=== PATIENT | male | born 1975 | race Caucasian/White ===

== ENCOUNTER 2021-01-31 12:59 | Emergency (ER) | payer MEDICAID, SELFPAY ==
--- NOTE | ~2021-01-31 | US_ITS ---
EXAMINATION: US SCROTUM US SCROTUM DOPPLER CLINICAL INFORMATION: Left scrotal pain. COMPARISON: None TECHNIQUE: A sonogram of the scrotum was performed assessing mckeon-scale appearance and color Doppler flow. Spectral Doppler analysis of the arterial and venous flow were performed in the testes bilaterally. FINDINGS: RIGHT: Right testicle measures 4.3 x 3.3 x 2.9 cm, volume 22 mL. No focal testicular parenchymal lesions are visualized. Spectral Doppler analysis of the arterial and venous flow is normal in the right testis. Right epididymal head is normal in size. There is a small amount of right scrotal fluid. Right epididymal Doppler flow is present LEFT: Left testicle measures 4.7 x 2.7 x 3.0 cm, volume 20 mL. No focal testicular parenchymal lesions are visualized. Spectral Doppler analysis of the arterial and venous flow is normal in the left testis. Left epididymal head is normal in size with a 0.6 cm epididymal head cyst or spermatocele. No left hydrocele or varicocele is seen. Left epididymal Doppler flow is increased in the epididymal tail which is hypoechoic and enlarged. US/US scrotum doppler IMPRESSION: No focal abnormality within either testicle. There is normal Doppler flow within each testicle. There is an enlarged hypervascular left epididymal tail. This may correspond to a cause for pain secondary to epididymitis
--- NOTE | ~2021-01-31 | US_ITS ---
EXAMINATION: US SCROTUM US SCROTUM DOPPLER CLINICAL INFORMATION: Left scrotal pain. COMPARISON: None TECHNIQUE: A sonogram of the scrotum was performed assessing mckeon-scale appearance and color Doppler flow. Spectral Doppler analysis of the arterial and venous flow were performed in the testes bilaterally. FINDINGS: RIGHT: Right testicle measures 4.3 x 3.3 x 2.9 cm, volume 22 mL. No focal testicular parenchymal lesions are visualized. Spectral Doppler analysis of the arterial and venous flow is normal in the right testis. Right epididymal head is normal in size. There is a small amount of right scrotal fluid. Right epididymal Doppler flow is present LEFT: Left testicle measures 4.7 x 2.7 x 3.0 cm, volume 20 mL. No focal testicular parenchymal lesions are visualized. Spectral Doppler analysis of the arterial and venous flow is normal in the left testis. Left epididymal head is normal in size with a 0.6 cm epididymal head cyst or spermatocele. No left hydrocele or varicocele is seen. Left epididymal Doppler flow is increased in the epididymal tail which is hypoechoic and enlarged. US/US scrotum IMPRESSION: No focal abnormality within either testicle. There is normal Doppler flow within each testicle. There is an enlarged hypervascular left epididymal tail. This may correspond to a cause for pain secondary to epididymitis
--- NOTE | ~2021-01-31 | CT_ITS ---
EXAMINATION: CT ABDOMEN AND PELVIS WITHOUT CONTRAST CLINICAL INFORMATION: Left flank pain radiating to the left lower quadrant. COMPARISON: CT scan of the abdomen and pelvis dated 01/01/2018. TECHNIQUE: Multidetector volumetric imaging was performed from the superior aspect of the liver through the pubic symphysis. Sagittal and coronal reformatted images were obtained on the technologist's workstation. Intravenous and oral contrast limits visceral evaluation. This CT examination was performed using dose optimization techniques as appropriate, variously including the following: *Automated exposure control *Adjustment of mA and/or kV according to patient size (this includes techniques or standardized protocols for targeted exams where dose is matched to indication/reason for exam; i.e. extremities or head) *Use of iterative reconstruction technique DLP: 919 mGy-cm FINDINGS: LUNG BASES: The visualized lung bases are unremarkable. LIVER, GALLBLADDER, AND BILIARY TREE: Unremarkable. PANCREAS: Unremarkable. SPLEEN: Noncalcified low attenuation focus inferiorly inferiorly without significant change measuring 1.2 cm. ADRENAL GLANDS: Unremarkable. KIDNEYS AND URETERS: The kidneys are normal in size, shape, and attenuation. No hydronephrosis, hydroureter, or calculi seen. A small interpolar exophytic cyst laterally measures 1.2 cm (image 53, series 5). No perinephric stranding. BLADDER: Unremarkable. GASTROINTESTINAL TRACT: The stomach is unremarkable. There is a small third segment duodenal diverticulum without abnormality. The remainder of the small bowel and appendix are unremarkable. Mild diverticulosis is seen in the sigmoid colon without acute abnormality. ABDOMINAL WALL: No significant hernia is appreciated. LYMPH NODES: No lymphadenopathy. VASCULAR: Unremarkable. PELVIC VISCERA: Unremarkable. OSSEOUS STRUCTURES: Unremarkable. CT/CT abdomen pelvis wo con IMPRESSION: 1. No nephrolithiasis or hydroureteronephrosis. Small left renal cysts demonstrate benign features. 2. Small inferior splenic cyst demonstrates benign features without significant change. 3. Mild sigmoid diverticulosis without evidence for acute diverticulitis.
--- NOTE | 2021-01-31 13:29 | ED.ABDPAIN ---
HPI - Abdominal Pain General Chief Complaint: Urogenital-Male Stated Complaint: KIDNEY PAIN Time Seen by Provider: 01/31/21 13:13 Source: patient Mode of arrival: ambulatory Limitations: no limitations History of Present Illness HPI narrative: 45 y/o male with no past medical history presents to the ER with worsening left flank pain that started 4 days ago. He states it started out dull and he thought it was a muscle ache. As time went on the pain increased and started to radiate down into his LLQ and left testicle. He states he did not sleep more than 2 hours last night due to the pain. He is nauseated but has not vomited. No fever, chills, hematuria, difficulty urinating or dysuria. No penile discharge. He reports similar pain (less intense) a few years ago for which he had a CT scan done that did not show any kidney stones and they thought he had already passed a stone. MD elicited complaint: flank pain Pertinent past history: none Onset (ago): day(s) (4) Pain Consistency: constant Location: L flank Severity: severe Pain scale (0-10): 10 Quality: stabbing and dull Radiation: LLQ Migration to: other (left testicle) Exacerbating factors: movement Relieving factors: nothing Context: history of similar episodes (once, several years ago ) Associated symptoms: nausea Related Data Previous Rx's Medication Instructions Recorded ibuprofen 600 mg PO Q8H PRN #20 tab 01/31/21 levofloxacin 500 mg PO DAILY #10 tab 01/31/21 miconazole nitrate 1 appl TOPICAL BID #30 g 01/31/21 Allergies Allergy/AdvReac Type Severity Reaction Status Date / Time No Known Allergies Allergy Unverified 08/13/20 14:55 [No Known Allergies*] Review of Systems Review of Systems Constitutional: No Fever, No Chills Cardiovascular: No Chest Pain, No SOB Respiratory: No Cough, No Sputum Gastrointestinal: + Nausea, No Vomiting, No Diarrhea, + abdominal Pain (left flank and LLQ) Genitourinary: No Dysuria, No Urinary Frequency, No Hematuria Musculoskeletal: No joint pain, No Myalgias Skin: No Skin Lesions, No rash Neuro: No Weakness, No Numbness, No Dizziness, No Headache Psych: No Anxiety/Panic, No Depression Heme/Lymph: No Bruising, No Lymphadenopathy Endocrine: No Polyuria, No Polydipsia Physical Exam Vital Signs: Vital Signs: Last Vital Signs Temp 98.9 F 01/31/21 16:11 Pulse 72 01/31/21 16:11 Resp 18 01/31/21 16:11 BP 128/81 01/31/21 16:11 Pulse Ox 95 01/31/21 16:11 Body Mass Index 29.4 Appearance: Alert. Oriented X3. Appears uncomfortable and in pain Eyes: Pupils equal, round and reactive to light. ENT: Pharynx normal. Neck: Normal inspection. Neck supple. CVS: Normal heart rate and rhythm. Pulses normal. Respiratory: No respiratory distress. Breath sounds normal. Abdomen: Soft with mild LLQ tenderness, no rebound or guarding. +CVA tenderness on the left. Genitalia: normal inspection, circumsized penis without discharge at meatus, mild tenderness of left epididymus, no masses Skin: Skin warm and dry. Normal skin color. Normal skin turgor. No rashes. Extremities: No lower extremity edema. Neuro: Oriented X 3. No motor deficit. No sensory deficit. Course Course Course Narrative: 45 yo male presenting with 4 days of worsening left flank pain. Clinical picture concerning for kidney stones. Differential diagnosis includes but not limited to diverticulitis, lumbar strain, pyelonephritis. Doubt testicular torsion or epididymitis. Will get labs and CT scan. IVF, zofran and toradol ordered. Reevaluation(s) Reevaluation #1: Pain persisted after Toradol - IV morphine given. Labs are looking unremarkable so far. CT scan pending. Reevaluation #2: CT scan did not show any evidence of kidney stones. It showed a stable benign splenic cyst (seen in prior CT 2018). His pain is improved after meds. Given testicular involvement will get US and r/o epididymitis and torsion. Reevaluation #3: Testicular US showing evidence of epididymitis without torsion. Will treat with Levaquin and refer to Urology. His pain continues to be well controlled and he is stable for discharge home. MDM - Abdominal Pain Lab Data Result diagrams: 01/31/21 13:49 01/31/21 13:49 Labs: Lab Results 01/31/21 01/31/21 01/31/21 Range/Units 13:49 13:49 13:49 WBC 9.2 (4.8-10.8) X10*3/uL RBC 5.13 (4.60-5.80) X10*6/uL Hgb 15.4 (14.0-18.0) g/dl Hct 45.1 (42-52) % MCV 87.9 (80-98) fL MCH 30.0 (27.0-33.0) pg MCHC 34.1 (31.0-36.0) g/dl RDW 12.1 (11.0-16.0) % Plt Count 246 (160-400) X10*3/uL MPV 9.5 (9.4-12.4) fL Immature Gran % (Auto) 0.3 (0.0-0.4) % Neut % (Auto) 63.6 (45-73) % Lymph % (Auto) 26.8 (20-40) % Gonzales % (Auto) 8.5 (2-11) % Eos % (Auto) 0.5 (0-4) % Baso % (Auto) 0.3 (0-2) % Lymph # (Auto) 2.5 (1.2-4.9) X10*3/uL Gonzales # (Auto) 0.8 (0.1-1.2) X10*3/uL Eos # (Auto) 0.1 (0.0-0.4) X10*3/uL Baso # (Auto) 0.0 (0.0-0.2) X10*3/uL Abs Immat Gran (auto) 0.03 (0.00-0.03) X10*3/uL Absolute Neuts (auto) 5.8 (2.0-8.3) X10*3/uL Absolute Nucleated RBC 0.000 (0.0-0.012) X10*3/uL Nucleated RBC % (auto) 0.0 (0.0-0.2) /100WBC Hold Blue Top SEE NOTE Sodium 139 (135-145) mmol/L Potassium 4.0 (3.3-5.1) mmol/L Chloride 104 (96-108) mmol/L Carbon Dioxide 27 (22-29) mmol/L Anion Gap 12 (12-20) BUN 10 (9-16) mg/dL Creatinine 0.98 (0.5-1.4) mg/dL Estim Creat Clear Calc 110.1 Estimated GFR > 60 Random Glucose 94 (60-115) mg/dL Calcium 9.1 (8.4-10.2) mg/dL Magnesium 1.8 (1.6-2.6) mg/dL Total Bilirubin 0.8 (0.0-1.0) mg/dL Direct Bilirubin 0.2 (0.0-0.5) mg/dL AST 20 (5-37) U/L ALT 30 (0-40) U/L Alkaline Phosphatase 50 (39-117) U/L Total Protein 7.5 (6.5-8.0) g/dL Albumin 4.7 (3.5-5.0) g/dL Urine Color Urine Appearance Urine pH (5.0-8.0) Ur Specific [place] (1.005-1.025) Urine Protein (NEG-TRACE) MG/DL Urine Glucose (UA) (NEG) MG/DL Urine Ketones (NEG) MG/DL Urine Blood (NEG) Urine Nitrite (NEG) Ur Leukocyte Esterase (NEG) 01/31/21 Range/Units 15:56 WBC (4.8-10.8) X10*3/uL RBC (4.60-5.80) X10*6/uL Hgb (14.0-18.0) g/dl Hct (42-52) % MCV (80-98) fL MCH (27.0-33.0) pg MCHC (31.0-36.0) g/dl RDW (11.0-16.0) % Plt Count (160-400) X10*3/uL MPV (9.4-12.4) fL Immature Gran % (Auto) (0.0-0.4) % Neut % (Auto) (45-73) % Lymph % (Auto) (20-40) % Gonzales % (Auto) (2-11) % Eos % (Auto) (0-4) % Baso % (Auto) (0-2) % Lymph # (Auto) (1.2-4.9) X10*3/uL Gonzales # (Auto) (0.1-1.2) X10*3/uL Eos # (Auto) (0.0-0.4) X10*3/uL Baso # (Auto) (0.0-0.2) X10*3/uL Abs Immat Gran (auto) (0.00-0.03) X10*3/uL Absolute Neuts (auto) (2.0-8.3) X10*3/uL Absolute Nucleated RBC (0.0-0.012) X10*3/uL Nucleated RBC % (auto) (0.0-0.2) /100WBC Hold Blue Top Sodium (135-145) mmol/L Potassium (3.3-5.1) mmol/L Chloride (96-108) mmol/L Carbon Dioxide (22-29) mmol/L Anion Gap (12-20) BUN (9-16) mg/dL Creatinine (0.5-1.4) mg/dL Estim Creat Clear Calc Estimated GFR Random Glucose (60-115) mg/dL Calcium (8.4-10.2) mg/dL Magnesium (1.6-2.6) mg/dL Total Bilirubin (0.0-1.0) mg/dL Direct Bilirubin (0.0-0.5) mg/dL AST (5-37) U/L ALT (0-40) U/L Alkaline Phosphatase (39-117) U/L Total Protein (6.5-8.0) g/dL Albumin (3.5-5.0) g/dL Urine Color YELLOW Urine Appearance CLEAR Urine pH 5.5 (5.0-8.0) Ur Specific [place] 1.010 (1.005-1.025) Urine Protein NEG (NEG-TRACE) MG/DL Urine Glucose (UA) NEG (NEG) MG/DL Urine Ketones NEG (NEG) MG/DL Urine Blood NEG (NEG) Urine Nitrite NEG (NEG) Ur Leukocyte Esterase NEG (NEG) Critical Care Time Critical Care Time Critical Care Time: No Discharge Plan Discharge Clinical Impression: Epididymitis Patient Disposition: Home, Self-Care Instructions: Epididymitis (ED) Additional Instructions: Your CT scans and blood were today were unremarkable. Your testicular ultrasound showed evidence of inflammation and possible infection of your epididymis. Take the prescribed antibiotic for this - complete all 10 days. Follow up with your doctor this week. Follow up with Urology as needed. If you are having continued or worsening pain come back to the ER for further evaluation. Prescriptions: New levofloxacin 500 mg tablet 500 mg PO DAILY Qty: 10 RF: 0 ibuprofen 600 mg tablet 600 mg PO Q8H PRN (Reason: pain) Qty: 20 RF: 0 miconazole nitrate 2 % cream 1 appl topical BID Qty: 30 RF: 0 PMFSH Past Medical History Attestation statement: The following information was validated with the patient. Social History Social History Alcohol intake: never Smoking Status: Never smoker Use of substances other than those prescribed or required for medical reasons: No Advance Directives: No Advance Directives Information Provided: No
[2021-01-31] MEDS: 0.9 % Sodium Chloride 1,000 ML 999 ML IVCONT ×2 (13:45→16:10)
[2021-01-31] MEDS: Ketorolac Tromethamine 30 MG/ML VIAL IVPUSH (13:45)
[2021-01-31] MEDS: ondansetron HCL 4 MG/2 ML VIAL IVPUSH (13:45)
[2021-01-31 13:52] VITALS: BP 153/81; PULSE 64; RESP 15; TEMP 36.7; O2SAT 97; BMI 29.4
[2021-01-31 13:54] LABS: MANUAL DIFF FLAG NO
[2021-01-31 13:55] LABS: Basophils Percent Auto 0.3 % (0-2); Eosinophils Absolute Auto 0.1 X10*3/uL (0.0-0.4); Eosinophils Percent Auto 0.5 % (0-4); Hematocrit 45.1 % (42-52); Hemoglobin 15.4 g/dl (14.0-18.0); Imm Gran Abs Auto 0.03 X10*3/uL (0.00-0.03); Imm Gran Pct Auto 0.3 % (0.0-0.4); Lymphocytes Absolute Auto 2.5 X10*3/uL (1.2-4.9); Lymphocytes Percent Auto 26.8 % (20-40); Mean Corpuscular HGB Conc 34.1 g/dl (31.0-36.0); Mean Corpuscular Volume 87.9 fL (80-98); Mean Platelet Volume 9.5 fL (9.4-12.4); Monocytes Absolute Auto 0.8 X10*3/uL (0.1-1.2); Monocytes Percent Auto 8.5 % (2-11); Neutrophils Absolute Auto 5.8 X10*3/uL (2.0-8.3); Neutrophils Percent Auto 63.6 % (45-73); Platelet Count 246 X10*3/uL (160-400); Red Blood Count 5.13 X10*6/uL (4.60-5.80); Red Cell Distribution Width 12.1 % (11.0-16.0); White Blood Count 9.2 X10*3/uL (4.8-10.8)
[2021-01-31 13:56] VITALS: BP 153/81; PULSE 64; RESP 15; TEMP 36.7; O2SAT 97
[2021-01-31] MEDS: Morphine Sulfate 4 MG/ML CARTRIDGE IVPUSH (14:11)
[2021-01-31 14:18] LABS: Alanine Aminotransferase 30 U/L (0-40); Albumin Level 4.7 g/dL (3.5-5.0); Alkaline Phosphatase 50 U/L (39-117); Anion Gap 12 (12-20); Aspartate Amino Transferase 20 U/L (5-37); Bilirubin Direct 0.2 mg/dL (0.0-0.5); Bilirubin Total 0.8 mg/dL (0.0-1.0); Blood Urea Nitrogen 10 mg/dL (9-16); Calcium 9.1 mg/dL (8.4-10.2); Carbon Dioxide 27 mmol/L (22-29); Chloride 104 mmol/L (96-108); Creatinine Clr Calc Pharmacy 110.1; Estimated Glomerular Filt Rate > 60; Glucose Random 94 mg/dL (60-115); Magnesium 1.8 mg/dL (1.6-2.6); Sodium 139 mmol/L (135-145); Total Protein 7.5 g/dL (6.5-8.0)
[2021-01-31 15:54] VITALS: BP 128/81; PULSE 72; RESP 18; TEMP 37.2; O2SAT 95
[2021-01-31 16:11] VITALS: BP 128/81; PULSE 72; RESP 18; TEMP 37.2; O2SAT 95
[2021-01-31 16:11] LABS: Glucose Urine UA NEG (NEG); Leukocyte Esterase Urine NEG (NEG); Nitrite Urine NEG (NEG); PH 5.5 (5.0-8.0); Urine Blood NEG (NEG); Urine Ketones NEG (NEG); Urine Protein NEG (NEG-TRACE)
[2021-01-31 16:12] LABS: Appearance Urine CLEAR; Color Urine YELLOW
[2021-01-31 17:36] VITALS: BP 99/68; PULSE 67; RESP 18; TEMP 37.2; O2SAT 97
== END 2021-01-31 17:43 | disposition home or self-care (01) ==
PROVIDERS: Physician Assistant; Emergency Provider Emergency Medicine
DX: N45.1 Epididymitis (principal)
CPT/HCPCS: 36415; 74176; 76870; 80048; 80076; 81003; 83735; 85025; 93975; 96361; 96374; 96375; 99284; J1885; J2270; J2405

== ENCOUNTER → 2021-02-24 09:03 | Outpatient (BNVA) | payer MEDICAID, SELFPAY | PROVIDERS: PCP Internal Medicine; Visit Provider Urology | DX: N45.1 Epididymitis (principal) | CPT/HCPCS: 64425; 99202 ==

== ENCOUNTER → 2021-03-17 14:14 | Outpatient (BNVA) | payer MEDICAID, SELFPAY | PROVIDERS: PCP Internal Medicine; Visit Provider Urology ==

== ENCOUNTER 2022-11-23 11:11 | Outpatient (REF) | payer MEDICAID, SELFPAY ==
--- NOTE | ~2022-11-23 | US_ITS ---
EXAMINATION: US SCROTUM CLINICAL INFORMATION: Epididymal cyst. COMPARISON: Scrotal ultrasound 01/31/2021. TECHNIQUE: A sonogram of the scrotum was performed assessing mckeon-scale appearance and color Doppler flow. Spectral Doppler analysis of the arterial and venous flow were performed in the testes bilaterally. FINDINGS: RIGHT: Right testicle measures 3.9 x 2.3 x 3.2 cm, volume 14.5 mL. There is a moderate-sized hydrocele with debris present. Spectral Doppler analysis of the arterial and venous flow is normal in the right testis. Microlithiasis is present. Right epididymal head contains a 7 mm epididymal head cyst. Right epididymal Doppler flow is normal. LEFT: Left testicle measures 4.3 x 2.3 x 2.9 cm, volume 14.9 mL. There is a varicocele present. Spectral Doppler analysis of the arterial and venous flow is normal in the left testis. Microlithiasis is present. Left epididymal head is normal. No left hydrocele is seen. Left epididymal Doppler flow is normal. US/US scrotum IMPRESSION: Right hydrocele with debris. Left varicocele. 7 mm right epididymal head cyst.
== END 2022-11-23 11:12 | disposition home or self-care (01) ==
LOC: HO.HMGCX 11:11
PROVIDERS: PCP Internal Medicine; Visit Provider Internal Medicine
DX: N50.3 Cyst of epididymis (principal)
CPT/HCPCS: 76870

== ENCOUNTER → 2022-12-26 14:46 | Outpatient (BNVA) | payer MEDICAID, SELFPAY | PROVIDERS: PCP Internal Medicine; Visit Provider Nurse Practitioner Family | DX: N45.1 Epididymitis (principal) | CPT/HCPCS: 99212 ==

== ENCOUNTER 2023-01-03 08:56 | Emergency (ER) | payer MEDICAID, SELFPAY ==
--- NOTE | ~2023-01-03 | CT_ITS ---
EXAMINATION: CT HEAD W/O IV CONTRAST CT CERVICAL SPINE W/O IV CONTRAST CLINICAL INFORMATION: 47-year-old male with history of pain after fall. COMPARISON: None TECHNIQUE: Head - Contiguous axial imaging of the head was performed from the skull base to the vertex without the administration of intravenous contrast, and axial images are reconstructed at 2 mm and 5 mm slice thickness. Cervical spine - A volumetric, helical CT acquisition of the cervical spine was obtained without contrast; in addition to the standard set of axial images, multiplanar reformatted images were provided in the coronal and sagittal imaging planes. This CT examination was performed using dose optimization techniques as appropriate, variously including the following: *Automated exposure control *Adjustment of mA and/or kV according to patient size (this includes techniques or standardized protocols for targeted exams where dose is matched to indication/reason for exam; i.e. extremities or head) *Use of iterative reconstruction technique DLP: 1319 mGy-cm (total) FINDINGS: HEAD: The brain parenchyma has normal attenuation. Bruner to white matter differentiation is preserved. No evidence of intracranial hemorrhage, major vascular territory infarction, focal mass effect or midline shift. The ventricles have normal size and configuration. No evidence of hydrocephalus or extra-axial fluid collections. The calvarium is intact and the visualized paranasal sinuses, mastoid air cells and middle ear cavities are clear. The temporomandibular joints are intact. The orbits and globes are unremarkable. CERVICAL SPINE: There is lack of lordotic curvature of the mildly degenerated cervical spine. The craniocervical junction is normal. The occipital condyles, dens and atlantodental articulation are intact. The vertebral body heights and alignment are maintained. No fractures in the anterior or posterior elements. No prevertebral soft tissue edema. Mild degenerative disc space loss and vertebral osteophyte formation at C4-C5 and C5-C6. Multilevel uncovertebral joint hypertrophy with osteophytes causing moderate right and mild left neural foraminal stenosis at C3-C4, and [id number] bilateral neural foraminal stenosis at C4-C5 and C5-C6. The right side of the spinal canal is mildly narrowed by a disc osteophyte complex at C3-C4. Also, mild central canal stenosis is caused by a disc-osteophyte complex at C5-C6. No hematoma in the visualized neck. The examined lung apices are normal. Thyroid gland is normal. CT/CT cervical spine wo IV con IMPRESSION: * No acute intracranial pathology. * No fracture or malalignment in the degenerated cervical spine.
--- NOTE | ~2023-01-03 | CT_ITS ---
EXAMINATION: CT HEAD W/O IV CONTRAST CT CERVICAL SPINE W/O IV CONTRAST CLINICAL INFORMATION: 47-year-old male with history of pain after fall. COMPARISON: None TECHNIQUE: Head - Contiguous axial imaging of the head was performed from the skull base to the vertex without the administration of intravenous contrast, and axial images are reconstructed at 2 mm and 5 mm slice thickness. Cervical spine - A volumetric, helical CT acquisition of the cervical spine was obtained without contrast; in addition to the standard set of axial images, multiplanar reformatted images were provided in the coronal and sagittal imaging planes. This CT examination was performed using dose optimization techniques as appropriate, variously including the following: *Automated exposure control *Adjustment of mA and/or kV according to patient size (this includes techniques or standardized protocols for targeted exams where dose is matched to indication/reason for exam; i.e. extremities or head) *Use of iterative reconstruction technique DLP: 1319 mGy-cm (total) FINDINGS: HEAD: The brain parenchyma has normal attenuation. Bruner to white matter differentiation is preserved. No evidence of intracranial hemorrhage, major vascular territory infarction, focal mass effect or midline shift. The ventricles have normal size and configuration. No evidence of hydrocephalus or extra-axial fluid collections. The calvarium is intact and the visualized paranasal sinuses, mastoid air cells and middle ear cavities are clear. The temporomandibular joints are intact. The orbits and globes are unremarkable. CERVICAL SPINE: There is lack of lordotic curvature of the mildly degenerated cervical spine. The craniocervical junction is normal. The occipital condyles, dens and atlantodental articulation are intact. The vertebral body heights and alignment are maintained. No fractures in the anterior or posterior elements. No prevertebral soft tissue edema. Mild degenerative disc space loss and vertebral osteophyte formation at C4-C5 and C5-C6. Multilevel uncovertebral joint hypertrophy with osteophytes causing moderate right and mild left neural foraminal stenosis at C3-C4, and [id number] bilateral neural foraminal stenosis at C4-C5 and C5-C6. The right side of the spinal canal is mildly narrowed by a disc osteophyte complex at C3-C4. Also, mild central canal stenosis is caused by a disc-osteophyte complex at C5-C6. No hematoma in the visualized neck. The examined lung apices are normal. Thyroid gland is normal. CT/CT head/brain wo IV con IMPRESSION: * No acute intracranial pathology. * No fracture or malalignment in the degenerated cervical spine.
--- NOTE | ~2023-01-03 | XR_ITS ---
EXAMINATION: XR LUMBOSACRAL SPINE CLINICAL INFORMATION: Back pain status post fall. COMPARISON: CT scan of the abdomen and pelvis dated 01/31/2021 TECHNIQUE: Three views of the lumbosacral spine. FINDINGS: There is normal lumbar lordosis and spinal alignment. Mild disc space narrowing is seen at L5-S1. The remainder the intervertebral disc spaces are unremarkable. XR/XR lumbar spine 2-3V IMPRESSION: L5-S1 mild disc space narrowing may be degenerative in nature. This is similar to the 2020 CT scan.
[2023-01-03 09:01] VITALS: BP 140/92; PULSE 94; RESP 18; TEMP 35.5; O2SAT 96; BMI 29.4
--- NOTE | 2023-01-03 09:13 | PC.NURSE ---
Patient admits to striking forehead on the trunk of his car. Denies LOC. Woke up today with n/v and was concerned about a head injury . PERRL. Steady gait with no unilateral weakness noted.
--- NOTE | 2023-01-03 09:47 | ED.HEATRA ---
HPI - Head Injury General Chief complaint: Head Injury Stated complaint: head inj vomiting Time Seen by Provider: 01/03/23 09:10 Source: patient Mode of arrival: ambulatory Limitations: no limitations History of Present Illness HPI Narrative: 47-year-old male with history of epididymitis currently on doxycycline who presents with complaints of head injury which occurred Monday. Patient reports that he was was behind his truck when the hitch from the trunk hit the top of his head. He fell backwards hitting his lower back on the trailer hitch behind him. He denies loss of consciousness. No neck pain. Patient reports that since the head injury he has had mild headache, lower back pain, nausea. Yesterday started to have some chills and this morning and several episodes of vomiting. No diarrhea, vision changes, dizziness. No history of concussion the past. Patient is currently taking doxycycline and on day 7 for epididymitis. He denies any urinary symptoms. He does report when he takes doxycycline he does have some mild nausea and upset stomach. Did take it today prior to the episodes of vomiting but also had some toast with. Patient reports he feels the back pain radiating around to the front. He denies any radiation the neck. No numbness, tingling or weakness in legs. No belly better incontinence. Tetanus status unknown Related Data Previous Rx's Medication Instructions Recorded doxycycline hyclate 100 mg tablet 100 mg PO BID 45 days #90 tabs 12/26/22 meloxicam 15 mg tablet 15 mg PO DAILY 30 days #30 tabs 12/26/22 cyclobenzaprine 10 mg tablet 10 mg PO TID PRN muscle spasm #10 01/03/23 tabs ondansetron 4 mg disintegrating 4 mg PO Q6H PRN nausea and 01/03/23 tablet vomiting #10 tabs Allergies Allergy/AdvReac Type Severity Reaction Status Date / Time No Known Allergies Allergy Verified 12/26/22 14:52 [No Known Allergies*] Review of Systems Review of Systems: Yes all other systems are reviewed and are negative Constitutional: Constitutional: Reports no additional constitutional complaints, Denies body ache(s), Reports chills, Denies fever(s), Reports headache(s) and Denies weakness Eyes: Eyes: Reports no additional eye complaints and Denies change in vision ENT: Reports system reviewed and no additional complaints, except as documented, Denies dizziness, Reports headache(s), Denies nasal congestion, Denies nasal discharge and Denies neck pain Cardiovascular: Cardiovascular: Reports no additional cardiovascular complaints, Denies chest pain, Denies leg edema and Denies dyspnea Respiratory: Respiratory: Reports no additional respiratory complaints, Denies cough and Denies dyspnea Gastrointestinal: Gastrointestinal: Reports no additional gastrointestinal complaints, Denies abdominal pain, Denies diarrhea, Reports nausea and Reports vomiting Genitourinary: Genitourinary: Denies urinary incontinence Musculoskeletal: Musculoskeletal: Reports no additional musculoskeletal complaints, Reports back pain, Denies arthralgias, Denies joint swelling, Denies neck pain, Denies numbness and Denies tingling Integumentary/Breasts: Skin/Breast: Reports system reviewed and no additional complaints, except as docu and Denies rash Neurologic: Reports system reviewed and no additional complaints, except as documented, Denies Abnormal speech present, Denies dizziness, Reports headache(s), Denies numbness, Denies tingling and Denies weakness PMFSH Past Medical History Medical History Epididymitis Surgical History History of hernia repair History of vasectomy Family History Family History Father Prostate cancer Social History Social History Alcohol intake: never Advance Directives: No Physical Exam Vital Signs: Vital Signs: Last Vital Signs Temp 96 F L 01/03/23 09:01 Pulse 94 01/03/23 09:01 Resp 18 01/03/23 09:01 BP 140/92 H 01/03/23 09:01 Pulse Ox 96 01/03/23 09:01 O2 Del Method 01/03/23 09:01 BMI result Body Mass Index 29.4 Const: General: cooperative, healthy appearing, comfortable and no acute distress Orientation/consciousness: patient oriented x3 Limitations: no limitations HEENT: Head: Yes normal to inspection, No Demarco's sign and No raccoon eyes Head images: 1. +abrasion Ears: hearing grossly normal bilaterally and TM's normal bilaterally General nose exam: Normal external nose present Face and sinus: Yes normal facial exam Mouth: Normal oral and palatal mucosa present Throat: Yes posterior oropharynx normal Eyes: General: appearance normal, both eyes and all related structures Pupils: Equal, round and reactive pupils present Neck: Other: No midline tenderness, step-offs or deformity Neck: Yes normal visual inspection and Yes full ROM Chest: Chest palpation & inspection: normal inspection of the chest Resp: Effort & Inspection: normal respiratory effort Auscultation: clear to auscultation bilaterally Cardio: Rate: regular rate Rhythm: regular rhythm Peripheral pulses: Peripheral pulses 2+ throughout GI: Inspection: Yes normal to inspection Palpation (GI): Soft to palpation and nontender Auscultation: normal bowel sounds Back/Spine/Pelvis: Other: there is tenderness the lumbar spine with no step-offs deformities. Pain is worsened with bilateral straight leg raise, flexion and extension of the spine. Thoracic/Lumbar Spine: thoracic and lumbar spine normal to inspection Skin: General skin exam: no rashes or lesions noted Neuro: General: patient oriented x3, moves all extremities, no focal motor deficits and normal sensation to monofilament Cranial nerves: Yes CN's II-XII intact bilaterally, Yes Equal, round and reactive pupils present, Yes Bilaterally intact EOM present, Yes Nystagmus not present, Yes Normal facial strength present and Yes Midline tongue present Cognition (Neuro): normal cognition Speech: No Abnormal speech present Gait exam (Neuro): Normal gait present Motor exam (neuro): 5/5 motor strength present throughout Sensory Exam: Normal double simultaneous stimulation for sensation Extrem: General: Yes normal to inspection Course Course Course Narrative: CT head and cervical spine are negative. X-ray of lumbar spine is negative. Testing for COVID, flu, RSV and urine are all negative. Likely concussion. Patient tolerating p.o. fluids. Neuro normal. We reviewed head injury care at home. Reviewed worrisome signs and symptoms of when to return to the emergency room. Discussed with patient that his nausea and vomiting may be multifactorial. Consider this may be from taking the doxycycline and or concussion. We discussed taking doxycycline with food, Zofran as needed. Reviewed worrisome signs and symptoms of when to return to the emergency room. Comfortable plan for discharge home. Medications Administered Discontinued Medications Generic Name Dose Route Start Last Admin Trade Name Freq PRN Reason Stop Dose Admin Diphtheria/Tetanus/Acell Pertussis 0.5 ml 01/03/23 11:10 01/03/23 11:18 Diphth,Pertus(Acell),Tet Adult 0.5 Ml Syringe IM 01/03/23 11:11 0.5 ml .ONCE ONE Administration Medical Decision Making Medical Decision Making [facility] Narrative: 47-year-old male here with mild headache, vomiting, chills after having a head injury on Monday. Patient also reports fall after a head strike with hitting his back and complaining of lower back pain as well. Patient is currently on doxycycline for epididymitis patient no history of previous concussion normal neuro exam with no focal findings symptoms may be secondary to underlying concussion. Also consider medication side effect from taking doxycycline, viral syndrome. Will obtain viral testing, UA, CT head, cervical spine, x-ray of lumbar spine, will need tetanus updated Differential Diagnosis Differential Diagnoses: The differential diagnosis associated with the presentation includes concussion, intracranial hemorrhage, fracture, contusion, medication side effects, viral syndrome Lab Data [facility] Lab Attestation statement: I reviewed the patient's lab results. Labs: Lab Results 01/03/23 01/03/23 Range/Units 09:39 09:57 Urine Color Dark Yellow Urine Appearance Clear Urine pH 6.0 (5.0-9.0) Ur Specific [place] >= 1.030 H (1.005-1.025) Urine Protein Trace (Neg-Trace) mg/dL Urine Glucose (UA) Negative (Negative) mg/dL Urine Ketones Trace (Negative) mg/dL Urine Blood Negative (Negative) Urine Nitrite Negative (Negative) Ur Leukocyte Esterase Trace H (Negative) Urine RBC 0-2 (0-2) /HPF Urine WBC 0-5 (0-5) /HPF Ur Squamous Epith Cells 0-2 (0-2) /HPF Urine Bacteria None Seen (None Seen) Hyaline Casts 0-2 (0-2) /LPF Influenza Type A (PCR) NEGATIVE (Negative) Influenza Type B (PCR) NEGATIVE (Negative) RSV RNA Qual (PCR) NEGATIVE (Negative) SARS-CoV-2 RNA (RT-PCR) NEGATIVE (Negative) Independent Interpretation I performed an independent interpretation of an: Plain X-Ray ( I independently reviewed the x-rays and agree with radiologist's report) and CT Scan ( I independently reviewed the CT scan and agree with the radiologist's reading) Radiology Impression Discussion of test interpretation with radiology: I have reviewed the radiologist's reading. Radiologist Impression: FINDINGS: There is normal lumbar lordosis and spinal alignment. Mild disc space narrowing is seen at L5-S1. The remainder the intervertebral disc spaces are unremarkable. XR/XR lumbar spine 2-3V IMPRESSION: L5-S1 mild disc space narrowing may be degenerative in nature. This is similar to the 2020 CT scan. FINDINGS: HEAD: The brain parenchyma has normal attenuation. Bruner to white matter differentiation is preserved. No evidence of intracranial hemorrhage, major vascular territory infarction, focal mass effect or midline shift. The ventricles have normal size and configuration. No evidence of hydrocephalus or extra-axial fluid collections. The calvarium is intact and the visualized paranasal sinuses, mastoid air cells and middle ear cavities are clear. The temporomandibular joints are intact. The orbits and globes are unremarkable. CERVICAL SPINE: There is lack of lordotic curvature of the mildly degenerated cervical spine. The craniocervical junction is normal. The occipital condyles, dens and atlantodental articulation are intact. The vertebral body heights and alignment are maintained.? No fractures in the anterior or posterior elements. No prevertebral soft tissue edema. Mild degenerative disc space loss and vertebral osteophyte formation at C4-C5 and C5-C6. Multilevel uncovertebral joint hypertrophy with osteophytes causing moderate right and mild left neural foraminal stenosis at C3-C4, and [id number] bilateral neural foraminal stenosis at C4-C5 and C5-C6. The right side of the spinal canal is mildly narrowed by a disc osteophyte complex at C3-C4. Also, mild central canal stenosis is caused by a disc-osteophyte complex at C5-C6. No hematoma in the visualized neck. The examined lung apices are normal. Thyroid gland is normal.? CT/CT cervical spine wo IV con IMPRESSION: *? No acute intracranial pathology. *? No fracture or malalignment in the degenerated cervical spine. ? Discharge Plan Discharge Clinical Impression: Concussion without loss of consciousness, Lumbar contusion Patient Disposition: Home, Self-Care Instructions: Concussion (ED), Contusion in Adults (ED) Additional Instructions: CT scan of your head and neck are negative. X-rays of your lower spine show no fracture expect to feel sore for the next few days. continue your home medication. take medications today as prescribed you also have of mild concussion. Please get plenty of brain rest and limit screen time follow-up with your primary care doctor make sure that you are taking your antibiotics with food Prescriptions: New cyclobenzaprine 10 mg tablet 10 mg PO TID PRN (Reason: muscle spasm) Qty: 10 0RF ondansetron 4 mg tablet,disintegrating 4 mg PO Q6H PRN (Reason: nausea and vomiting) Qty: 10 0RF No Action meloxicam 15 mg tablet 15 mg PO DAILY 30 Days Qty: 30 0RF doxycycline hyclate 100 mg tablet 100 mg PO BID 45 Days Qty: 90 0RF Referrals: Elena Beebe MD [Primary Care Provider] - 1 week Interventions: ED Discharge Assessment Last Done: 01/03/23 11:15 Discharge Date/Time: 01/03/23 11:20
[2023-01-03 10:09] LABS: Appearance Urine Clear; Color Urine Dark Yellow; Glucose Urine UA Negative (Negative); Leukocyte Esterase Urine Trace (Negative); Nitrite Urine Negative (Negative); Specific Gravity - Urine >= 1.030 (1.005-1.025); UMIC TRIGGER UACC YES; Urine Blood Negative (Negative); Urine Ketones Trace mg/dL (Negative); Urine Protein Trace mg/dL (Neg-Trace)
[2023-01-03 10:30] LABS: Influenza A PCR NEGATIVE (Negative); Influenza B PCR NEGATIVE (Negative); Resp Syncy Virus RNA Qual PCR NEGATIVE (Negative); SARS COV2 PCR INHOUSE NEGATIVE (Negative)
[2023-01-03 10:36] LABS: Bacteria Urine None Seen (None Seen); Hyaline Casts Urine 0-2 /LPF (0-2); RBC Urine 0-2 /HPF (0-2); Squamous Epithelial Cell Urine 0-2 /HPF (0-2); WBC Urine 0-5 /HPF (0-5)
[2023-01-03] MEDS: Diphth,Pertus(ACell),Tet Adult 0.5 ML SYRINGE IM (11:18)
--- NOTE | 2023-01-03 11:20 | PC.NURSE ---
vaccine information given to patient
== END 2023-01-03 11:20 | disposition home or self-care (01) ==
PROVIDERS: Nurse Practitioner Family; Emergency Provider Emergency Medicine; PCP Internal Medicine
DX: S06.0X0A Concussion without loss of consciousness, initial encounter (principal); S00.01XA Abrasion of scalp, initial encounter; S30.0XXA Contusion of lower back and pelvis, initial encounter; Y29.XXXA Contact with blunt object, undetermined intent, initial encounter; Y93.9 Activity, unspecified; Y92.9 Unspecified place or not applicable; Y99.9 Unspecified external cause status; Z20.822 Contact with and (suspected) exposure to COVID-19; Z20.828 Contact with and (suspected) exposure to other viral communicable diseases; Z79.899 Other long term (current) drug therapy
CPT/HCPCS: 0241U; 70450; 72100; 72125; 81001; 90471; 90715; 99282; 99284

== ENCOUNTER → 2023-02-13 09:23 | Outpatient (BNVA) | payer MEDICAID, SELFPAY | PROVIDERS: PCP Internal Medicine; Visit Provider Nurse Practitioner Family | DX: N45.1 Epididymitis (principal) | CPT/HCPCS: 99212 ==

== ENCOUNTER → 2023-03-16 11:30 | Outpatient (BNVA) | payer MEDICAID, SELFPAY | PROVIDERS: PCP Internal Medicine; Visit Provider Nurse Practitioner Family | DX: N50.819 Testicular pain, unspecified (principal); R10.30 Lower abdominal pain, unspecified | CPT/HCPCS: 99212 ==

== ENCOUNTER → 2023-04-18 10:10 | Outpatient (BNVA) | payer MEDICAID, SELFPAY | PROVIDERS: PCP Internal Medicine; Visit Provider Urology | DX: N50.3 Cyst of epididymis (principal) | CPT/HCPCS: 99212 ==

== ENCOUNTER 2023-06-29 11:11 | Outpatient (AMB) | payer MEDICAID, SELFPAY ==
--- NOTE | 2023-06-29 11:19 | A.OFFVIS_ITS ---
Intake Intake Visit Reasons: H&P (epididymal cyst rem. 07/10/23) Intake Note: Patient is present for Follow Up h&p Urology Med: none Antibiotic Allergy:none Blood Thinner: None Pharmacy: [facility] Allergies No Known Allergies [No Known Allergies*] Allergy (Verified 04/18/23 10:18) HPI HPI Comments History of Present Illness Details Ramón is a pleasant male. He is a patient of Dr. Beebe. seen for the following urologic conditions - epididymal cyst Re-examination Chronic pain left epididymal head Response any inflammatories Undergoing epididymal cysts in 2 weeks Understands risks and benefits including loss of testicle Acute epididymitis Significant improvement on antibiotics Initially treated with Levaquin which did not help, required 2 weeks of doxycycline Has happen previously Vasectomy performed 2014 On exam tender left epididymal head Local cord block performed bupivacaine lidocaine mix with Kenalog - 80% improvement Plan for left epididymal head cyst removal [facility] Medical History Epididymitis Surgical History History of hernia repair History of vasectomy Family History Father Prostate cancer Social History Alcohol intake: never Review of Systems Const Denies chills and Denies fever(s) Card Reports no additional complaints and Denies syncope Resp Denies cough GI Denies abdominal pain and Denies heartburn Reports as per HPI and Denies change in libido Neuro Denies syncope Psych Denies change in libido Endo Denies change in libido Physical Exam Const General: cooperative, healthy appearing, comfortable and no acute distress Orientation/consciousness: patient oriented x3 HEENT Face and sinus: Yes normal facial exam Mouth: moist mucous membranes Neck Neck: Yes normal visual inspection, Yes full ROM and Yes trachea midline Chest Chest palpation & inspection: normal inspection of the chest Resp Effort & Inspection: normal respiratory effort, able to speak in complete sentences and no respiratory distress GI Inspection: Yes normal to inspection Back/Spine/Pelvis Cervical Spine: normal cervical lordosis Thoracic/Lumbar Spine: thoracic and lumbar spine normal to inspection Skin General skin exam: no rashes or lesions noted Neuro General: patient oriented x3, gait normal, tone normal and moves all extremities Extrem General: Yes normal to inspection and Yes capillary refill normal Assessment & Plan Assessment & Plan (1) Epididymal cyst: Code(s): N50.3 - Cyst of epididymis Plan Risks, benefits and alternatives to therapy were discussed. These include but are not limited to infection, bleeding, damage to local organs and tissues, need for further interventions. Anesthetic risks regarding cardiac arrhythmia, blood clots, and potential mortality were discussed. The patient understands the typical recovery time and the outpatient nature of the procedure. After consideration of these risks the patient gives full informed consent and they wish to move ahead with the procedure. Planned left epididymal cyst removal Patient Instructions: Imaging studies, laboratory and physical exam results were discussed and reviewed in detail. No major barriers to patient understanding were identified. An opportunity to ask questions regarding the treatment plan was provided. All questions were answered. The patient expressed understanding and agreement with the above treatment plan. The patient is aware they should contact our office by phone for worsening of their current condition or the appearance of new urologic symptoms. Compliance is encouraged with any medications and followup testing that is ordered. It is a privilege to participate in the urologic care of your patient. If you have any questions or concerns regarding treatment for the above conditions, or other urologic issues, please do not hesitate to contact me. The office telephone contact is [phone]. This note is constructed using voice recognition software. While every effort has been made to ensure accuracy custom car builder errors may have been included. Yours sincerely, Dr Peng Barnes MD, [facility] - Urology Providers of Expert, Compassionate Care for the Genitourinary System Coding Level of Care Code Est Pt Level 3 (38488) Diagnoses Epididymal cyst N50.3
== END 2023-06-29 13:26 | disposition home or self-care (01) ==
PROVIDERS: Visit Provider Urology
DX: N50.3 Cyst of epididymis (principal)
CPT/HCPCS: 99213

== ENCOUNTER → 2023-06-29 11:11 | Outpatient (BNVA) | payer MEDICAID, SELFPAY | PROVIDERS: Visit Provider Urology | DX: N50.3 Cyst of epididymis (principal) | CPT/HCPCS: 99212 ==

== ENCOUNTER 2023-07-10 08:14 | Day surgery (SDC) | payer MEDICAID, SELFPAY ==
[2023-07-05 15:26] VITALS: BMI 29.0
--- NOTE | 2023-07-07 09:29 | HO.ANESPROP2 ---
Documented by User: Casandra Negrete NP 07/07/23 09:30 HPI - Anesthesia Eval Consult details Narrative: 48yo M for Left Excision Spermatocele PMFSH Active Problems Active Problems: All Active Problems (Updated 04/18/23 @ 11:01 by Peng Barnes MD) Inguinal pain (Acute) Testicular pain (Acute) Epididymal cyst (Acute) Epididymitis (Acute) Past Medical History Medical History Epididymitis Family History Family History Father Prostate cancer Surgical History Surgical History (Updated 07/10/23 @ 08:53 by Sadie Johnson) History of hernia repair History of vasectomy Hx of tonsillectomy Social History Social History Alcohol intake: never Patient Tobacco Use Status: Never used Tobacco Use of substances other than those prescribed or required for medical reasons: Yes Substance Use Type Other:: advised to hold pre-op Substance Use Frequency: Daily Have you been hit, kicked, punched, or otherwise hurt by someone within the past year? If so, by whom?: No Are you DNR?: No Advance Directives: No Advance Directives Information Provided: Yes Advance Directives on File: No Recently lost weight without trying: No Eating poorly because of decreased appetite: No Nutrition Risks: No Nutritional Risk Poor oral hygiene: No Meds Allergies Allergy/AdvReac Type Severity Reaction Status Date / Time No Known Allergies Allergy Verified 07/10/23 08:53 [No Known Allergies*] Home Medications Medication Instructions Recorded Confirmed Last Taken Type No Known Home Meds 07/05/23 07/10/23 Unknown History Exam Exam Date and Time: July 07, 2023 0929 Height,Weight and Vital Signs: Height 5 ft 10.5 in Weight 92.986 kg Assessment and Plan Assessment Anesthesia Assessment: Chart Reviewed Documented by User: Lincoln Casarez MD 07/10/23 09:19 PMFSH Past Medical History Medical History Epididymitis Family History Family History Father Prostate cancer Family history of problems with anesthesia: No Surgical History Surgical History (Updated 07/10/23 @ 08:53 by Sadie Johnson) History of hernia repair History of vasectomy Hx of tonsillectomy History of Problems with Anesthesia: No Social History Social History Alcohol intake: never Patient Tobacco Use Status: Never used Tobacco Use of substances other than those prescribed or required for medical reasons: Yes Substance Use Type Other:: advised to hold pre-op Substance Use Frequency: Daily Have you been hit, kicked, punched, or otherwise hurt by someone within the past year? If so, by whom?: No Are you DNR?: No Advance Directives: No Advance Directives Information Provided: Yes Advance Directives on File: No Recently lost weight without trying: No Eating poorly because of decreased appetite: No Nutrition Risks: No Nutritional Risk Poor oral hygiene: No Meds Allergies Allergy/AdvReac Type Severity Reaction Status Date / Time No Known Allergies Allergy Verified 07/10/23 08:53 [No Known Allergies*] Home Medications Medication Instructions Recorded Confirmed Last Taken Type No Known Home Meds 07/05/23 07/10/23 Unknown History Exam Airway Mallampati Class: II TM Dist: >3cm Neck ROM: Full Heart: rrr Lungs: cta Assessment and Plan Assessment Anesthesia Assessment: Anesthesia Plan Discussed Final Anesthetic Review Family History of Problems with Anesthesia: No History of Problems with Anesthesia: No NPO: Yes ASA Class: II Final Preanesthetic Review: No Changes in Pt Med Stat, Meds/Allgs Chart Reviewed, Consent Obtained/Reviewed and Anes Risks/Benef Reviewed Patient Risk: Low Procedure Risk: Intermediate Anesthetic Plan Anesthetic Plan: GA and Agree w/ Assess. and Plan Disposition: Standard PACU
[2023-07-10] VITALS (9 sets, daily range): BP systolic 127–158; BP diastolic 77–95; PULSE 54–64; RESP 16; TEMP 36.2–36.6; O2SAT 93–98
[2023-07-10] MEDS: Lactated Ringers 1,000 ML 100 ML IVCONT (09:09)
--- NOTE | 2023-07-10 09:51 | MHC.SHP ---
Pre-Procedural Eval Section A Date of Service: 07/10/23 The patient is an INPATIENT: No Changes since office visit: No Cold of Flu in the past 2 weeks, No New Medical Problems, No Changes in Medication and No Patient answered all questions The History & Physical has been completed within 30 days and I have reviewed it.: Yes Section B Chief Complaint: Cyst of epididymis Details of Present Illness: left epididymal cyst with pain Relevant Social History: None Present Medications: None Medical History: No relevant PMH History of Previous Operations: No relevant previous surgery Allergies: Allergies Allergy/AdvReac Type Severity Reaction Status Date / Time No Known Allergies Allergy Verified 07/10/23 08:53 [No Known Allergies*] Review of Systems Sugical H&P ROS: Negative: Constitution, Cardiovascular, Respiratory, Neurological, Psychiatric, Hem-Onc, Allergic/Immunologic, Gastrointestinal, Genitourinary, Musculoskeletal, Integumentary, Endocrine and Eyes/Ears/Nose/Throat Exam Surgical H&P Exam: Normal: HEENT, Normal: Heart, Normal: Lungs, Normal: Extremities, Normal: Abdomen, Normal: Skin and Normal: Neurological Plan Diagnosis/Plan: Unchanged ( left epididymal cyst removal) I have reviewed the history and physical and performed a pertinent physical examination on my patient. No changes have occurred unless specified. Time Spent With Patient Time: Total time managing care of this patient today ____ minutes.
--- NOTE | 2023-07-10 10:47 | W.PM.OPN ---
Operative Note Operative Note Date of Service: 07/10/23 Narrative: PreOperative Diagnosis: left Spermatocele Post Operative Diagnosis: left Spermatocele with inflamed epididymal head Procedure: left Spermatocelectomy with partial epididymectomy Surgeon: Dr Peng Barnes Anesthesia: General Indications for procedure: left Spermatocele with persistent discomfort Procedure: After informed consent was verified the patient was brought to the operating room and placed in a supine position. Anesthesia was administered per protocol. Patient was appropriately shaved and genitals were prepped and draped in sterile fashion. Safety pause time-out was performed. Antibiotics being given. Local anesthetic was infiltrated under the skin in a horizontal fashion on the scrotum. Skin incision was made using a blade through the subdermal layer. The tunica around the testicle was elevated and dissected free from surrounding tissue. A small incision was made through the tunic. Edges were held using Allis clamps. Fluid was removed. The testicle was delivered from the tunic. The spermatocele was seen within the epididymis of the testicle adjacent to the head of the epididymis. In addition there was reactive fat throughout the cord structures in the distal portion. Using Bovie cautery spermatocele was carefully dissected free from attachments to the upper pole of the testicle and the epididymis. Once free the stalk of the spermatocele was identified and cauterized. Fluid was removed from the spermatocele and the empty spermatocele sac was removed. Small accessory appendices were removed from the head of epididymis. The head of the epididymis was inflamed in injure rated. The epididymis was carefully dissected with traction on the head of the epididymis. Sharp dissection was performed approximately 1.5 cm from the tip of the head of the epididymis under the epididymis to elevate the epididymis from the testicle. This area was carefully dissected and using a 3-0 Vicryl tied off to contain vessels that run from the testicle to the epididymal head. Approximately 1 cm the epididymal head was then dissected with the Bovie. The vessels feeding from superiorly were also tied with a 3-0 Vicryl tie. The testicle was placed back within tunica inside the scrotum. The tunica was closed using a running 3-0 Vicryl suture. Overlying tissue was reapproximated using a running 3-0 Vicryl suture. Skin was closed with interrupted 4-0 chromic sutures. Soft fluff sponges were placed with mesh pants as dressing. Local anesthetic was placed in inguinal cord for post procedure pain relief. Patient tolerated procedure well was extubated in operating room transferred in stable condition to the recovery area Pathology: Spermatocele sac, Distal head of the epididymis Drains:
[2023-07-10] MEDS: fentaNYL citrate/PF 100 MCG/2 ML VIAL 25 MCG IVPUSH ×2 (11:05→11:10)
[2023-07-10] MEDS: Acetaminophen 325 MG TABLET 975 MG PO (11:05)
[2023-07-10] MEDS: traMADoL HCL 50 MG TABLET PO (11:05)
== END 2023-07-10 12:18 | disposition home or self-care (01) ==
PROVIDERS: PCP Internal Medicine; Visit Provider Urology
PROC: (CPT 54840; principal; 2023-07-10 10:00)
DX: N50.3 Cyst of epididymis (principal); N43.41 Spermatocele of epididymis, single; N45.1 Epididymitis; G89.29 Other chronic pain; Z98.52 Vasectomy status
CPT/HCPCS: 54840; 88304; J0690; J1885; J2405; J2795; J3010

== ENCOUNTER → 2023-07-10 08:14 | Outpatient (BNV) | payer MEDICAID, SELFPAY | PROVIDERS: PCP Internal Medicine; Visit Provider Urology | DX: N43.41 Spermatocele of epididymis, single (principal) | CPT/HCPCS: 54840 ==

== ENCOUNTER 2023-08-18 11:12 | Outpatient (AMB) | payer MEDICAID, SELFPAY ==
--- NOTE | 2023-08-18 11:34 | A.OFFVIS_ITS ---
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 He is a patient of Dr. Beebe. seen for the following urologic conditions - epididymal cyst Six weeks post epididymal head cyst removal with partial epididymectomy Doing well Minimal pain with ejaculation Very happy with current result Six week follow-up Acute epididymitis Significant improvement on antibiotics Initially treated with Levaquin which did not help, required 2 weeks of doxycycline Has happen previously Vasectomy performed 2014 On exam tender left epididymal head Local cord block performed bupivacaine lidocaine mix with Kenalog - 80% improvement 07/19 - Left epididymal cyst with partial epididymectomy PFSH Medical History Epididymitis Surgical History Hx of tonsillectomy History of vasectomy History of hernia repair Family History Father Prostate cancer Social History Alcohol intake: never Patient Tobacco Use Status: Never used Tobacco Review of Systems Const Denies chills and Denies fever(s) Card Reports no additional complaints and Denies syncope Resp Denies cough GI Denies abdominal pain and Denies heartburn Reports as per HPI and Denies change in libido Neuro Denies syncope Psych Denies change in libido Endo Denies change in libido Physical Exam Const General: cooperative, healthy appearing, comfortable and no acute distress Orientation/consciousness: patient oriented x3 HEENT Face and sinus: Yes normal facial exam Mouth: moist mucous membranes Neck Neck: Yes normal visual inspection, Yes full ROM and Yes trachea midline Chest Chest palpation & inspection: normal inspection of the chest Resp Effort & Inspection: normal respiratory effort, able to speak in complete sentences and no respiratory distress GI Inspection: Yes normal to inspection Back/Spine/Pelvis Cervical Spine: normal cervical lordosis Thoracic/Lumbar Spine: thoracic and lumbar spine normal to inspection Skin General skin exam: no rashes or lesions noted Neuro General: patient oriented x3, gait normal, tone normal and moves all extremities Extrem General: Yes normal to inspection and Yes capillary refill normal Assessment & Plan Assessment & Plan (1) Epididymal cyst: Code(s): N50.3 - Cyst of epididymis Plan Six month follow-up Patient Instructions: Imaging studies, laboratory and physical exam results were discussed and reviewed in detail. No major barriers to patient understanding were identified. An opportunity to ask questions regarding the treatment plan was provided. All questions were answered. The patient expressed understanding and agreement with the above treatment plan. The patient is aware they should contact our office by phone for worsening of their current condition or the appearance of new urologic symptoms. Compliance is encouraged with any medications and followup testing that is ordered. It is a privilege to participate in the urologic care of your patient. If you have any questions or concerns regarding treatment for the above conditions, or other urologic issues, please do not hesitate to contact me. The office telephone contact is [phone]. This note is constructed using voice recognition software. While every effort has been made to ensure accuracy channel partners errors may have been included. Yours sincerely, Dr Peng Barnes MD, [facility] - Urology Providers of Expert, Compassionate Care for the Genitourinary System Coding Level of Care Code Est Pt Level 3 (23737) Diagnoses Epididymal cyst N50.3
== END 2023-08-18 11:46 | disposition home or self-care (01) ==
PROVIDERS: PCP Internal Medicine; Visit Provider Urology
DX: N50.3 Cyst of epididymis (principal)
CPT/HCPCS: 99024

== ENCOUNTER → 2023-08-18 11:12 | Outpatient (BNVA) | payer MEDICAID, SELFPAY | PROVIDERS: Visit Provider Urology | DX: Z09 Encounter for follow-up examination after completed treatment for conditions other than malignant neoplasm (principal) | CPT/HCPCS: 99212 ==

== ENCOUNTER 2024-02-15 10:42 | Outpatient (AMB) | payer MEDICAID, SELFPAY ==
--- NOTE | 2024-02-15 10:49 | A.OFFVIS_ITS ---
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 He is a patient of Dr. Beebe. seen for the following urologic conditions - epididymal cyst Six-month follow-up post epididymal head cyst removal with partial epididymectomy Continues to do well following epididymal head cyst removal Significantly improved outlook on life Follow-up p.r.n. Acute epididymitis Significant improvement on antibiotics Initially treated with Levaquin which did not help, required 2 weeks of doxycycline Has happen previously Vasectomy performed 2014 On exam tender left epididymal head Local cord block performed bupivacaine lidocaine mix with Kenalog - 80% improvement 07/19 - Left epididymal cyst with partial epididymectomy PFSH Medical History Epididymitis Surgical History Hx of tonsillectomy History of vasectomy History of hernia repair Family History Father Prostate cancer Social History Alcohol intake: never Patient Tobacco Use Status: Never used Tobacco Review of Systems Const Denies chills and Denies fever(s) Card Reports no additional complaints and Denies syncope Resp Denies cough GI Denies abdominal pain and Denies heartburn Reports as per HPI and Denies change in libido Neuro Denies syncope Psych Denies change in libido Endo Denies change in libido Physical Exam Const General: cooperative, healthy appearing, comfortable and no acute distress Orientation/consciousness: patient oriented x3 HEENT Face and sinus: Yes normal facial exam Mouth: moist mucous membranes Neck Neck: Yes normal visual inspection, Yes full ROM and Yes trachea midline Chest Chest palpation & inspection: normal inspection of the chest Resp Effort & Inspection: normal respiratory effort, able to speak in complete sentences and no respiratory distress GI Inspection: Yes normal to inspection Back/Spine/Pelvis Cervical Spine: normal cervical lordosis Thoracic/Lumbar Spine: thoracic and lumbar spine normal to inspection Skin General skin exam: no rashes or lesions noted Neuro General: patient oriented x3, gait normal, tone normal and moves all extremities Extrem General: Yes normal to inspection and Yes capillary refill normal Assessment & Plan Assessment & Plan (1) Epididymal cyst: Code(s): N50.3 - Cyst of epididymis (2) Testicular pain: Code(s): N50.819 - Testicular pain, unspecified Plan P.r.n. follow-up Patient Instructions: Imaging studies, laboratory and physical exam results were discussed and reviewed in detail. No major barriers to patient understanding were identified. An opportunity to ask questions regarding the treatment plan was provided. All questions were answered. The patient expressed understanding and agreement with the above treatment plan. The patient is aware they should contact our office by phone for worsening of their current condition or the appearance of new urologic symptoms. Compliance is encouraged with any medications and followup testing that is ordered. It is a privilege to participate in the urologic care of your patient. If you have any questions or concerns regarding treatment for the above conditions, or other urologic issues, please do not hesitate to contact me. The office telephone contact is [phone]. This note is constructed using voice recognition software. While every effort has been made to ensure accuracy surgical clinical reviewer errors may have been included. Yours sincerely, Dr Peng Barnes MD, [facility] - Urology Providers of Expert, Compassionate Care for the Genitourinary System Coding Level of Care Code Est Pt Level 3 (93135) Diagnoses Epididymal cyst N50.3 Testicular pain N50.819
== END 2024-02-15 11:33 | disposition home or self-care (01) ==
PROVIDERS: PCP Internal Medicine; Visit Provider Urology
DX: N50.3 Cyst of epididymis (principal); N50.819 Testicular pain, unspecified
CPT/HCPCS: 99213

== ENCOUNTER → 2024-02-15 10:42 | Outpatient (BNVA) | payer MEDICAID, SELFPAY | PROVIDERS: PCP Internal Medicine; Visit Provider Urology | DX: N45.1 Epididymitis (principal); N50.3 Cyst of epididymis; N50.819 Testicular pain, unspecified | CPT/HCPCS: 99212 ==